=== PATIENT | female | born 1945 | race Caucasian/White ===

== ENCOUNTER 2025-07-23 10:20 | Outpatient (CLI) | payer OTHER | END 2025-07-23 10:21 | disposition home or self-care (01) | LOC: BICCT 10:20 | PROVIDERS: ATTEND Internal Medicine Cardiovascular Disease | DX: Z01.810 Encounter for preprocedural cardiovascular examination (principal); I70.0 Atherosclerosis of aorta; I34.81 Nonrheumatic mitral (valve) annulus calcification | CPT/HCPCS: 75571 ==